=== PATIENT | female | born 1990 | race Caucasian/White ===

== ENCOUNTER 2020-10-20 11:01 | Inpatient (IN) ==
[2020-10-20] MEDS ORDERED: OXYTOCIN 30 UNITS/500 ML BAG IV PRN ×2 (11:23→11:39)
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
[2020-10-20 12:10] LABS: Hemoglobin 11.1 g/dL (12.0-16.0); Mean Corpuscular Hemoglobin 34.5 pg (25-34); Mean Corpuscular Hgb Conc 34.7 g/dL (32-36); Mean Corpuscular Volume 99.4 fL (80-100); Mean Platelet Volume 10.1 fL (7.4-10.4); Platelet Count 198 K/uL (130-400); RDW Coefficient of Variation 14.9 % (11.5-14.5); RDW Standard Deviation 53.6 fL (36.4-46.3); Red Blood Count 3.22 M/uL (4.2-5.4); White Blood Count 10.63 K/uL (4.8-10.8)
[2020-10-20] MEDS: LACTATED RINGER'S 1,000 ML IV PRN ×3 (12:34→21:09)
[2020-10-20 12:50] LABS: Albumin Level 2.7 gm/dl (3.4-5.0); BUN Creatinine Ratio 10.1 (10-20); Calcium 8.4 mg/dl (8.5-10.1); Creatinine Clr Calc Pharmacy 179.8 ml/min; Est GFR (African American) 146.2; Est GFR (Non-African American) 126.2; Potassium 3.8 mmol/L (3.5-5.1)
[2020-10-20 12:53] LABS: Albumin Globulin Ratio 0.8 (0.9-2); Bilirubin,Total 0.4 mg/dl (0.2-1); Globulin 3.5 gm/dl (2.5-4.0); Total Protein 6.2 gm/dl (6.4-8.2)
--- NOTE | 2020-10-20 16:37 | Labor Progress Brief Note ---
Date of Service October 20, 2020 Subjective Reason For Note: Routine Evaluation Assessment & Plan (1) Supervision of normal first : 30yo at 37.3 weeks GA. IOL for preEclampsia without SF. 1. Fetus: Cat 1 2. Labor: Unchanged. AROM. Continue Pitocin 3. PIH - No signs/symptoms of worsening disease. Labs and vitals WNL (2) Need for rhogam due to Rh negative mother: (3) Pre-eclampsia affecting , antepartum: Admission and Anticipated Discharge Date Admission Date: October 20, 2020 Physical Exam Genitourinary: Manual OB Exam: + cervical dilation 4 cm, + cervical effacement 70%, + station -2 and + amniotic fluid clear OB Exam Monitor Tracing: + external FHT monitor used, + external uterine monitor used, + category I and + normal FHT variability; no early decelerations present, no late decelerations present and no variable decelerations Results & Data ([facility]) Vital Signs (Past 12 Hours) Vital Signs Temp Pulse Resp BP 10/20/20 15:50 73 18 123/67 10/20/20 15:10 36.7 C 75 16 127/70 10/20/20 14:19 82 18 126/83 10/20/20 13:23 77 18 135/72 10/20/20 13:00 20 10/20/20 12:34 36.7 C 75 20 122/76 10/20/20 11:14 36.8 C 78 20 134/82 10/20/20 11:10 78 134/82 Coding Level of Care Code None Diagnoses Supervision of normal first Z34.00 Need for rhogam due to Rh negative mother Z29.13 Pre-eclampsia affecting , antepartum O14.90
[2020-10-20] MEDS ORDERED: SODIUM CHLORIDE 0.9% INJ 10 ML VIAL ONE (17:33)
[2020-10-20] MEDS ORDERED: fentaNYL citrate 100 MCG/2 ML VIAL ONE (17:33)
[2020-10-20] MEDS ORDERED: fentaNYL 2MCG/ML ROPIVACAINE 1.25MG/ML 100 ML BAG EPI ONE (17:33)
[2020-10-20] MEDS ORDERED: ePHEDrine sulfate 50 MG/ML AMP ONE (17:33)
[2020-10-20] MEDS ORDERED: BUPIVACAINE 0.25% 30 ML VIAL ONE (17:33)
[2020-10-20] MEDS ORDERED: ONDANSETRON INJ 2 MG/ML 2 ML VIAL IV PRN (18:02)
[2020-10-20] MEDS ORDERED: fentaNYL 2MCG/ML ROPIVACAINE 1.25MG/ML 100 ML BAG EPI PRN (18:02)
[2020-10-20] MEDS ORDERED: NALOXONE HCL 1 MG in SODIUM CHLORIDE 0.9% 1000ML 1,000 ML IV PRN (18:02)
[2020-10-20] MEDS ORDERED: diphenhydrAMINE 50 MG/ML VIAL IV PRN (18:02)
[2020-10-20] MEDS ORDERED: ePHEDrine sulfate 50 MG/ML AMP IV PRN (18:02)
[2020-10-20] MEDS ORDERED: NALOXONE HCL 0.4 MG/1 ML VIAL/CARP IV PRN (18:02)
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
--- NOTE | 2020-10-20 20:44 | Labor Progress Brief Note ---
Date of Service October 20, 2020 Subjective Reason For Note: Routine Evaluation Assessment & Plan (1) Supervision of normal first : 30yo at 37.3 weeks GA. IOL for preEclampsia without SF. 1. Fetus: Cat 1 2. Labor: Unchanged. AROM. Continue Pitocin, IUPC placed 3. PIH - No signs/symptoms of worsening disease. Labs and vitals WNL (2) Need for rhogam due to Rh negative mother: (3) Pre-eclampsia affecting , antepartum: Admission and Anticipated Discharge Date Admission Date: October 20, 2020 Physical Exam Genitourinary: OB Exam Abdomen: + vertex Manual OB Exam: + cervical dilation 4 cm, + cervical effacement 80%, + station -2 and + amniotic fluid clear OB Exam Monitor Tracing: + external FHT monitor used, + category I and + normal FHT variability; no early decelerations present, no late decelerations present and no variable decelerations IUPC placed Results & Data ([facility]) Vital Signs (Past 12 Hours) Vital Signs Temp Pulse Resp BP Pulse Ox 10/20/20 20:39 65 134/64 97 10/20/20 20:34 75 97 10/20/20 20:29 75 97 10/20/20 20:24 62 99 10/20/20 20:23 60 112/53 L 10/20/20 20:19 61 97 10/20/20 20:14 60 98 10/20/20 20:09 59 L 112/51 L 99 10/20/20 20:05 70 93 10/20/20 20:04 67 96 10/20/20 19:59 66 97 10/20/20 19:55 61 112/54 L 10/20/20 19:54 61 98 10/20/20 19:49 66 99 10/20/20 19:44 64 99 10/20/20 19:39 65 99 10/20/20 19:38 59 L 116/56 L 10/20/20 19:34 65 98 10/20/20 19:29 71 98 10/20/20 19:24 63 117/57 L 98 10/20/20 19:19 68 99 10/20/20 19:14 62 99 10/20/20 19:09 66 98 10/20/20 19:07 58 L 104/52 L 10/20/20 19:05 36.6 C 62 18 111/55 L 10/20/20 19:04 65 110/56 L 98 10/20/20 19:01 61 104/55 L 10/20/20 18:59 59 L 103/55 L 97 10/20/20 18:57 123 H 18 97/56 L 10/20/20 18:55 59 L 101/59 L 10/20/20 18:54 68 98 10/20/20 18:53 67 103/53 L 10/20/20 18:51 71 110/55 L 10/20/20 18:49 77 119/60 98 10/20/20 18:47 63 108/55 L 10/20/20 18:45 70 18 121/56 L 10/20/20 18:44 76 97 10/20/20 18:43 75 18 116/58 L 10/20/20 18:41 67 18 122/62 10/20/20 18:39 77 18 124/65 97 10/20/20 18:37 73 18 124/58 L 10/20/20 18:35 75 18 123/57 L 10/20/20 18:34 80 98 10/20/20 18:33 74 18 119/58 L 10/20/20 18:31 71 18 127/59 L 10/20/20 18:29 71 115/62 97 10/20/20 18:27 68 18 104/54 L 10/20/20 18:24 80 112/56 L 97 10/20/20 18:19 90 143/94 H 97 10/20/20 18:17 88 18 143/79 H 10/20/20 18:14 76 98 10/20/20 18:09 96 H 96 10/20/20 18:04 78 97 10/20/20 17:59 78 97 10/20/20 17:56 79 136/77 10/20/20 17:54 75 99 10/20/20 17:49 71 98 10/20/20 17:44 82 98 10/20/20 17:39 72 99 10/20/20 16:45 36.7 C 67 16 138/80 10/20/20 15:50 73 18 123/67 10/20/20 15:10 36.7 C 75 16 127/70 10/20/20 14:19 82 18 126/83 10/20/20 13:23 77 18 135/72 10/20/20 13:00 20 10/20/20 12:34 36.7 C 75 20 122/76 10/20/20 11:14 36.8 C 78 20 134/82 10/20/20 11:10 78 134/82 Coding Level of Care Code None Diagnoses Supervision of normal first Z34.00 Need for rhogam due to Rh negative mother Z29.13 Pre-eclampsia affecting , antepartum O14.90
[2020-10-20] MEDS ORDERED: ACETAMINOPHEN 500 MG TAB PO PRN (23:12)
[2020-10-20] MEDS ORDERED: NURSING L&D Epidural Breakthrough Pain Update ONE (23:39)
[2020-10-21] MEDS ORDERED: DIPHTHERIA/TETANUS/PERTUSSIS 0.5 ML SYR/VIAL IM ONE (05:33)
[2020-10-21] MEDS ORDERED: BENZOCAINE 20% AER SPR 82.5 GM CAN EXT PRN (05:33)
[2020-10-21] MEDS ORDERED: SUPERCREAM 0.870% 15 GM JAR EXT PRN (05:33)
[2020-10-21] MEDS ORDERED: HYDROCORTISONE ACETATE 25 MG SUPP PR PRN (05:33)
[2020-10-21] MEDS ORDERED: bisacodyL 10 MG SUPP PR PRN (05:33)
[2020-10-21] MEDS ORDERED: OXYTOCIN 30 UNITS/500 ML BAG IV PRN (05:33)
[2020-10-21] MEDS: IBUPROFEN 600 MG TAB PO PRN ×3 (06:24→20:38)
[2020-10-21] MEDS: PRENATAL VITAMIN 1 TAB PO SCH (09:08)
[2020-10-21] MEDS: DOCUSATE SODIUM 100 MG CAP PO SCH ×2 (09:08→20:17)
[2020-10-21] MEDS: ACETAMINOPHEN 325 MG TAB PO PRN (09:08)
--- NOTE | 2020-10-21 09:23 | Anesthesia Procedure Note ---
Date of Service October 21, 2020 Anesthesia Post Epidural Note Vital Signs Vital Signs: Temp Pulse Resp BP Pulse Ox 37.2 C 65 18 142/68 H 94 10/21/20 05:30 10/21/20 08:00 10/21/20 06:30 10/21/20 08:00 10/21/20 05:29 Pain Intensity Bilateral Lower Abdomen: Pain Intensity: 7 Episiotomy/Laceration: Pain Intensity: 5 Notes Mental Status: alert / awake / arousable and participated in evaluation Patient Amnestic to Procedure: Yes Nausea / Vomiting: adequately controlled Pain: adequately controlled Airway Patency, RR, SpO2: stable & adequate BP & HR: stable & adequate Hydration State: stable & adequate Anesthetic Complications: no major complications apparent and Pt Satisfied with anesthetic care
--- NOTE | 2020-10-21 14:19 | Delivery Summary ---
DATE OF OPERATION: 10/21/2020 PROCEDURE: Normal spontaneous vaginal delivery with first-degree perineal and right labial laceration repair. SURGEON: Mekhi Douglas MD. PREOPERATIVE DIAGNOSES: 1. Single intrauterine at 37 weeks 4 days gestational age. 2. Preeclampsia without severe features. 3. Rh negative. POSTOPERATIVE DIAGNOSES: 1. Single intrauterine at 37 weeks 4 days gestational age. 2. Preeclampsia without severe features. 3. Rh negative. 4. Status post delivery. ESTIMATED BLOOD LOSS: 200 mL. DRAINS: None. FLUIDS: Continuous lactated Ringer. URINE OUTPUT: Not measured. COMPLICATIONS: None. FINDINGS: Viable with weight pending and Apgars of 7 and 8 at one and five minutes respectively. DESCRIPTION OF PROCEDURE: The patient progressed to 10 cm dilated, 100% effaced, +2 station, pushed over intact perineum with epidural anesthesia to deliver a viable with weight and Apgars as noted above. Head of the delivered in MILES position, restituted to right transverse. No nuchal cord was noted. Body and shoulders quickly followed. was delivered to maternal abdomen and was stimulated and became vigorous in approximately 20 seconds. One-minute delayed cord clamping was initiated, after which the cord was double clamped and cut. remained on maternal abdomen. The cord blood was obtained. Attention was then turned to deliver the placenta, which was delivered intact, 3-vessel cord, gentle cord traction. On inspection of the perineum, vagina, and cervix, there was noted to be a first-degree perineal laceration and a right labial laceration, which were repaired with 3-0 Vicryl. Needle, sponge and instrument counts were correct at the completion of the case with mother and stable in the immediate post-delivery period. I attest to the content of the Intraoperative Record and any orders documented therein. Any exception s are noted below.
--- NOTE | 2020-10-22 05:28 | Obstetrical Progress Note ---
Date of Service <Oz Vuong MD - Last Filed: 10/22/20 06:24> October 22, 2020 Assessment & Plan <Oz Vuong MD - Last Filed: 10/22/20 06:24> (1) (spontaneous vaginal delivery): Jenifer is a 30 y/o female who is now PPD #1 following planned IOL for pre-eclampsia w/o severe features at 37 weeks. - Feels well today. Eating well, voiding well, ambulating well. - Pain well controlled with ibuprofen 600mg Q4H PRN. - BPs primarily within normal range while here -- without signs/symptoms of pre- eclampsia, labs demonstrating stability - Routine PPD care -- OOB, ambulation as tolerated - philatelic consultant p.r.n. - After discharge will have [address] Douglas Dispo: Anticipate d/c tomorrow pending improved , circ by peds (2) Pre-eclampsia affecting , antepartum: (3) Need for rhogam due to Rh negative mother: Subjective <Oz Vuong MD - Last Filed: 10/22/20 06:24> Jenifer is a 30 y/o female who is now PPD #1 following planned IOL for pre- eclampsia w/o severe features at 37 weeks. Reports feeling well overall this morning. Mild abdominal cramping with pain well managed on analgesics. Voiding without difficulty. Tolerating meals well and able to ambulate some. Endorses passing gas. Some persistent lochia with some improvement this morning. Mixing breast/bottle feeding - some difficulties with latching, but continuing to try. Mild BLANCO this morning. No changes in vision. Feels well otherwise. Review of Systems Denies fever, chills, sweats Denies shortness of breath, difficulty breathing, chest pain, palpitations, chest pressure. Denies breast pain. Denies dysuria. Physical Exam <Oz Vuong MD - Last Filed: 10/22/20 06:24> General: Alert, oriented. No acute distress. Cardiac: Regular rate and rhythm, no murmurs/rubs/gallops. Respiratory: Clear to auscultation bilaterally a/p, no wheezes/rales/rhonchi. No increased work of breathing. Symmetrical chest rise. No respiratory distress. Abdomen: Soft, nontender, nondistended. Bowel sounds present. Uterus: Uterine fundus firm, palpable 2 cm below umbilicus. Lower Extremities: No lower extremity edema or swelling. No deep calf pain. Dez's negative bilaterally. Results & Data ([facility]) <Oz Vuong MD - Last Filed: 10/22/20 06:24> Vital Signs (Past 12 Hours) Vital Signs Temp Pulse Resp BP Pulse Ox 10/22/20 00:10 36.4 C L 73 20 126/78 98 10/21/20 20:15 36.8 C 82 18 118/67 <Jenifer Her DO - Last Filed: 10/22/20 06:53> Co-Signing Physician Notes Resident Physician Supervision Note: I was present with Dr. Vuong during the history and exam. I discussed the case with the resident and agree with the findings and plan as documented in the note. Any exceptions or clarifications are listed here: PPD#1 doing well. Anticipate DC home tomorrow. Documented By: Jenifer Her DO Resident Activity Tracking <Oz Vuong MD - Last Filed: 10/22/20 06:24> Resident Involvement: Resident Care Provided Care Provided: Adult Hospital Medicine and OB Delivery
[2020-10-22] MEDS: IBUPROFEN 600 MG TAB PO PRN ×3 (06:15→23:34)
[2020-10-22 06:25] LABS: Hematocrit (blood only) 27.4 % (37-47); Hemoglobin 9.6 g/dL (12.0-16.0)
[2020-10-22] MEDS: MAGNESIUM OXIDE 400 MG TAB PO SCH (08:47)
[2020-10-22] MEDS: DOCUSATE SODIUM 100 MG CAP PO SCH ×2 (08:47→19:47)
[2020-10-22] MEDS: SERTRALINE HCL 50 MG TABLET PO SCH (08:47)
[2020-10-22] MEDS: PRENATAL VITAMIN 1 TAB PO SCH (08:47)
[2020-10-22] MEDS ORDERED: bisacodyL 5 MG TABEC PO SCH (20:00)
--- NOTE | 2020-10-23 05:50 | Obstetrical Progress Note ---
Date of Service <Oz Vuong MD - Last Filed: 10/23/20 07:14> October 23, 2020 Assessment & Plan <Oz Vuong MD - Last Filed: 10/23/20 07:14> (1) (spontaneous vaginal delivery): Jenifer is a 30 y/o female who is now PPD #2 following planned IOL for pre-eclampsia w/o severe features at 37 weeks. s/p - Feels well today. Eating well, voiding well, ambulating well. - Pain well controlled with ibuprofen 600mg Q4H PRN. - Routine PPD care -- OOB, ambulation as tolerated - Anticipate d/c today, possibly nesting, await recs by peds for baby - After discharge will have [address] Douglas Pre-eclampsia without Severe Features - BPs primarily within normal range while here -- without signs/symptoms of pre- eclampsia, labs demonstrating stability - Will require 1 week f/u in office for BP check -- staff messaged - Reviewed signs/symptoms that would prompt patient to call sooner (2) Pre-eclampsia affecting , antepartum: (3) Need for rhogam due to Rh negative mother: Subjective <Oz Vuong MD - Last Filed: 10/23/20 07:14> Jenifer is a 30 y/o female who is now PPD #2 following planned IOL for pre- eclampsia with subsequent at 37 weeks. Reports feeling well overall this morning. Endorses mild abdominal cramping and pain well managed on analgesics. Voiding without difficulty. Tolerating meals well and able to ambulate some. Some persistent lochia with some improvement this morning. Breast feeding. Review of Systems Denies fever, chills, sweats Denies shortness of breath, difficulty breathing, chest pain, palpitations, chest pressure. Denies breast pain. Denies dysuria. Denies headache or changes in vision. Physical Exam <Oz Vuong MD - Last Filed: 10/23/20 07:14> General: Alert, oriented. No acute distress. Cardiac: Regular rate and rhythm, no murmurs/rubs/gallops. Respiratory: Clear to auscultation bilaterally a/p, no wheezes/rales/rhonchi. No increased work of breathing. Symmetrical chest rise. No respiratory distress. Abdomen: Soft, nontender, nondistended. Bowel sounds present. Uterus: Uterine fundus firm, palpable 2 cm below umbilicus. Lower Extremities: No lower extremity edema or swelling. No deep calf pain. Dez's negative bilaterally. Results & Data ([facility]) <Oz Vuong MD - Last Filed: 10/23/20 07:14> Vital Signs (Past 12 Hours) Vital Signs Temp Pulse Resp BP Pulse Ox 10/22/20 23:30 36.8 C 70 16 145/88 H 98 <Erum Poole MD, FACOG - Last Filed: 10/23/20 07:16> Co-Signing Physician Notes Resident Physician Supervision Note: I interviewed and examined the patient. Discussed with Dr. Vuong and agree with findings and plan as documented in the note. Any exceptions or clarifications are listed here: [None] Documented By: Erum Poole MD, FACOG Resident Activity Tracking <Oz Vuong MD - Last Filed: 10/23/20 07:14> Resident Involvement: Resident Care Provided Care Provided: Adult Hospital Medicine and OB Delivery
[2020-10-23] MEDS: IBUPROFEN 600 MG TAB PO PRN ×2 (06:45→12:04)
[2020-10-23] MEDS: DOCUSATE SODIUM 100 MG CAP PO SCH (08:14)
[2020-10-23] MEDS: PRENATAL VITAMIN 1 TAB PO SCH (08:14)
[2020-10-23] MEDS: SERTRALINE HCL 50 MG TABLET PO SCH (09:32)
[2020-10-23] MEDS: MAGNESIUM OXIDE 400 MG TAB PO SCH (09:32)
[2020-10-23] MEDS: ACETAMINOPHEN 325 MG TAB PO PRN (17:13)
== END 2020-10-23 19:43 | disposition home or self-care (01) | DRG 807 ==
LOC: 4S1 11:01 → 4S2 10-21 11:55